=== PATIENT | male | born 1960 | race Caucasian/White ===

== ENCOUNTER 2016-07-03 00:36 | Emergency (ER) | payer MEDICARE ==
[~2016-07-03] VITALS: Ht 167.6 cm; Wt 81.6 kg
[2016-07-03 00:51] VITALS: BP 117/77
[2016-07-03] MEDS ORDERED: HYDR25TA PO (01:00)
[2016-07-03] MEDS ORDERED: PRED20TA PO (01:00)
--- NOTE | 2016-07-03 01:01 | PHYS DOC ---
Past Medical History Past Medical History: Other Additional Past Medical Histor: "anger disorder"; Past Surgical History: Other Additional Past Surgical Histo: carpal tunnel; toe; back Alcohol Use: Heavy Drug Use: None Adult General Chief Complaint Chief Complaint: ITCHING HPI HPI Patient is a 56 year old male presents emergency department stating that he has poison clint throughout his body for the last 4 days. He's been using over-the -counter calamine and Caladryl lotion as well as some IV lotion cream. Patient states he is not having any relief from these medications. Patient does state he has not tried Benadryl as Benadryl causes him to have restless leg syndrome. He denies any shortness of air difficulty breathing. Patient with redness noted throughout his arms and his chest and abdomen area. Review of Systems Review of Systems Constitutional: Denies fever or chills [] Eyes: Denies change in visual acuity, redness, or eye pain [] HENT: Denies nasal congestion or sore throat [] Respiratory: Denies cough or shortness of breath [] Cardiovascular: No additional information not addressed in HPI [] GI: Denies abdominal pain, nausea, vomiting, bloody stools or diarrhea [] : Denies dysuria or hematuria [] Musculoskeletal: Denies back pain or joint pain [] Integument: rash denies skin lesions [] Neurologic: Denies headache, focal weakness or sensory changes [] Allergies Allergies Allergies Coded Allergies Type Severity Reaction Last Updated Verified bupivacaine Allergy Unknown 11/02/13 No Physical Exam Physical Exam Constitutional: Well developed, well nourished, no acute distress, non-toxic appearance. [] HENT: Normocephalic, atraumatic, bilateral external ears normal, oropharynx moist, no oral exudates, nose normal. [] Eyes: PERRLA, EOMI, conjunctiva normal, no discharge. [] Neck: Normal range of motion, no tenderness, supple, no stridor. [] Cardiovascular:Heart rate regular rhythm, no murmur [] Lungs & Thorax: Bilateral breath sounds clear to auscultation [] Skin: Warm, dry, no erythema. Patient with red irritated raised rash noted throughout the arms chest and abdomen area no drainage or discharge noted from the areas. Back: No tenderness Extremities: No tenderness, no cyanosis, no clubbing, ROM intact, no edema. [] Neurologic: Alert and oriented X 3, normal motor function, normal sensory function, no focal deficits noted. [] Psychologic: Affect normal, judgement normal, mood normal. [] EKG EKG [] Radiology/Procedures Radiology/Procedures [] Course & Med Decision Making Course & Med Decision Making Pertinent Labs and Imaging studies reviewed. (See chart for details) Patient will be discharged home with recommendations to use Benadryl 25 mg every 4-6 hours he was also instructed that this medication will cause drowsiness do not take any be alert and oriented. Patient was also provided a prescription for Atarax in which she may use in place of Benadryl. Patient will be provided with a Solu-Medrol injection here in the emergency department. He' ll be placed on prednisone to take on a daily basis for the next 7 days. Patient was also recommended to use Aveeno baths [id number] to help soothe the skin keeping the areas clean dry and cool also help. Patient was also recommended to continue to use calamine lotion. Patient will be discharged home in stable condition signs symptoms to return back to emergency department as been provided. Patient agrees with discharge instructions, treatment regimens and follow-up recommendations. [] Dragon Disclaimer Dragon Disclaimer This electronic medical record was generated, in whole or in part, using a voice recognition dictation system. Departure Departure Impression: Primary Impression: Contact dermatitis Disposition: 01 HOME, SELF-CARE Condition: STABLE Referrals: NON,STAFF (PCP) Patient Instructions: Contact Dermatitis, [id number] Additional Instructions: Your being treated for contact dermatitis. Your provided with Solu-Medrol here in the emergency department. Keep the areas clean dry and cool. Benadryl 25 mg every 4-6 hours as needed for itching and irritation. This medication will cause drowsiness do not take any be alert and oriented,or may take the prescription for Atarax that will help with itching. Do not take both medications. Calamine lotion may also help with the irritation. Medication as prescribed. Aveeno baths may also help soothe the skin. Follow-up with a your primary care physician in the next 3-5 days. Return back to emergency department for signs and symptoms of become worse. Scripts Hydroxyzine Hcl 25 Mg Tablet1 Tab PO TID #30 TAB Prov:NORMA JOHNSTON APRN 07/03/16 Prednisone 20 Mg [id number] Mg PO DAILY #14 TAB Prov:NORMA JOHNSTON APRN 07/03/16 NORMA JOHNSTON APRN Jul 03, 2016 01:01
[2016-07-03] MEDS ORDERED: methylPREDNISolone SOD SUCC PF 125 MG/2 ML VIAL. IM ONE (01:15)
== END 2016-07-03 01:03 | disposition home or self-care (01) ==
LOC: ER 00:36
DX: L23.7 Allergic contact dermatitis due to plants, except food (principal); F10.10 Alcohol abuse, uncomplicated; Z88.4 Allergy status to anesthetic agent
CPT/HCPCS: 96372; 99283; J2930

== ENCOUNTER 2017-04-22 11:31 | Emergency (ER) | payer SELFPAY, MEDICARE ==
[2017-04-22 12:08] LABS: ADD MAN DIFF? NO
[2017-04-22 12:13] LABS: BASO % 0 % (0-3); EOS % 0 % (0-3); HEMATOCRIT 43.2 % (39.0-53.0); HEMOGLOBIN 14.2 g/dL (13.0-17.5); LYMPH # 1.6 x10^3/uL (1.0-4.8); LYMPH % 16 % (24-48); MEAN CORPUSCULAR HEMOGLOBIN 29 pg (25-35); MEAN CORPUSCULAR HGB CONC 33 g/dL (31-37); MEAN CORPUSCULAR VOLUME 89 fL (79-100); MONO # 0.7 x10^3/uL (0.0-1.1); MONO % 8 % (0-9); NEUT # 7.4 x10^3uL (1.8-7.7); NEUT % 75 % (31-73); PLATELET COUNT 238 x10^3/uL (140-400); RED BLOOD COUNT 4.87 x10^6/uL (4.30-5.70); RED CELL DISTRIBUTION WIDTH 14.7 % (11.5-14.5); WHITE BLOOD COUNT 9.8 x10^3/uL (4.0-11.0)
[2017-04-22] MEDS: KETOROLAC 60 MG/2 ML INJ. IM ×2 (12:22)
[2017-04-22 12:23] LABS: ANION GAP 9 (6-14); BLOOD UREA NITROGEN 26 mg/dL (8-26); BUN/CREATININE RATIO 22 (6-20); CARBON DIOXIDE 29 mmol/L (21-32); CHLORIDE 98 mmol/L (98-107); CREATININE 1.2 mg/dL (0.7-1.3); GFR 62.9; GLUCOSE 131 mg/dL (70-99); POTASSIUM 3.7 mmol/L (3.5-5.1); SODIUM 136 mmol/L (136-145)
[2017-04-22 12:29] LABS: ALBUMIN 3.5 g/dL (3.4-5.0); ALBUMIN/GLOBULIN RATIO 0.9 (1.0-1.7); ALK PHOS 88 U/L (46-116); ALT (SGPT) 42 U/L (16-63); AST (SGOT) 39 U/L (15-37); TOTAL BILIRUBIN 0.8 mg/dL (0.2-1.0); TOTAL PROTEIN 7.3 g/dL (6.4-8.2)
[2017-04-22] MEDS: HYDROcodone/APAP 10/325 1 TAB TABLET PO ×2 (12:52)
[2017-04-22 13:00] LABS: URIC ACID 10.4 mg/dL (3.5-7.2)
== END 2017-04-22 13:42 | disposition home or self-care (01) ==
LOC: ER 11:31
DX: M10.9 Gout, unspecified (principal); I11.0 Hypertensive heart disease with heart failure; I50.9 Heart failure, unspecified; Z88.8 Allergy status to other drugs, medicaments and biological substances; Z88.4 Allergy status to anesthetic agent
CPT/HCPCS: 36415; 73630; 80053; 84550; 85025; 96372; 99285; J1885

== ENCOUNTER 2017-05-13 09:06 | Emergency (ER) | payer SELFPAY | END 2017-05-13 10:02 | disposition home or self-care (01) | LOC: ER 09:06 | DX: M10.9 Gout, unspecified (principal); M79.674 Pain in right toe(s); I11.0 Hypertensive heart disease with heart failure; I50.9 Heart failure, unspecified; F10.20 Alcohol dependence, uncomplicated; Z88.4 Allergy status to anesthetic agent; Z88.8 Allergy status to other drugs, medicaments and biological substances | CPT/HCPCS: 99283 ==

== ENCOUNTER 2017-06-10 03:50 | Emergency (ER) | payer SELFPAY, MEDICARE | END 2017-06-10 04:31 | disposition home or self-care (01) | LOC: ER 03:50 | DX: M10.9 Gout, unspecified (principal); I11.0 Hypertensive heart disease with heart failure; I50.9 Heart failure, unspecified; F10.10 Alcohol abuse, uncomplicated; Z88.5 Allergy status to narcotic agent; Z88.8 Allergy status to other drugs, medicaments and biological substances | CPT/HCPCS: 99283 ==